=== PATIENT | male | born 1980 | race Caucasian/White ===

== ENCOUNTER 2018-02-06 21:33 | Emergency (ER) | payer BC, SELFPAY ==
[2018-02-06 22:41] LABS: #Basophils 0.1 thou/uL (0.0-0.2); #Eosinphils 0.2 thou/uL (0.0-0.7); #Lymphocytes 1.7 thou/uL (1.20-3.40); #Monocytes 0.5 thou/uL (0.11-0.59); #Neutrophils 5.8 thou/uL (1.40-6.50); %Eosinophils 2.4 % (0.0-10.0); %Lymphocytes 20.6 % (21.0-51.0); %Monocytes 6.2 % (0.0-10.0); %Neutrophils 69.8 % (42.0-75.0); Hemoglobin 14.2 g/dL (14.0-18.0); Mean Corpuscular Volume 97.1 fL (78.0-98.0); Mean Platelet Volume 6.4 fL (7.4-10.4); Platelet Count 413 thou/uL (130-400); RBC Distribution Width 11.5 % (11.5-14.5); White Blood Cell (WBC) Count 8.3 thou/uL (4.8-10.8)
[2018-02-06 23:00] LABS: Acetaminophen Less than 6.0 mcg/mL (10.0-30.0); Alcohol 353 mg/dL (Less than 10); CK (CPK) 173 U/L (30-200); Salicylate Less than 8.0 mg/dL (15.0-30.0)
[2018-02-06 23:13] LABS: ALT (SGPT) 51 U/L (8-55); AST (SGOT) 48 U/L (5-34); Albumin 4.3 g/dL (3.5-5.0); Alkaline Phosphatase 55 U/L (40-150); Anion Gap 13 mmol/L (10-20); BUN (Urea Nitrogen) 8 mg/dL (8.9-20.6); Bilirubin, Total 0.3 mg/dL (0.2-1.2); Calc. Creatinine Clearance 0 mL/min (70-130); Calcium 8.4 mg/dL (7.8-10.44); Carbon Dioxide 27 mmol/L (22-29); Chloride 108 mmol/L (98-107); Estimated GFR-MDRD Greater than 90; Globulin 3.2 g/dL (2.4-3.5); Glucose 95 mg/dL (70-105); Potassium 4.3 mmol/L (3.5-5.1); Protein, Total 7.5 g/dL (6.0-8.3); Sodium 144 mmol/L (136-145)
[2018-02-07 00:13] LABS: Bilirubin Negative (Negative); Blood, Urine Negative (Negative); Clarity CLEAR (Clear); Glucose, Urine (Dipstick) Negative (Negative); Leukocyte Negative (Negative); Nitrite Negative (Negative); Protein, Urine (Dipstick) Negative (Neg-Trace); Specific Gravity, Urine 1.005 (1.002-1.036); Urobilinogen 0.2 mg/dL (0.2-1.0)
[2018-02-07 00:20] LABS: Medtox Reader # READER 4
[2018-02-07 00:21] LABS: Amphetamine Not Detected (NotDetected); Barbiturates Screen Not Detected (NotDetected); Benzodiazepine Screen Not Detected (NotDetected); Cocaine Metabolite Screen Not Detected (NotDetected); Medtox Control Line Valid? VALID (VALID); Methadone Not Detected (NotDetected); Methamphetamine Not Detected (NotDetected); Opiate Screen Not Detected (NotDetected); Oxycodone Screen Not Detected (NotDetected); Phencyclidine (PCP) Not Detected (NotDetected); THC/Cannabinoid Screen Not Detected (NotDetected); Tricyclic Screen Not Detected (NotDetected)
== END 2018-02-07 22:32 | disposition home or self-care (01) ==
LOC: ERS 21:33
DX: F10.129 Alcohol abuse with intoxication, unspecified (principal); Y90.5 Blood alcohol level of 100-119 mg/100 ml; R45.1 Restlessness and agitation; F41.9 Anxiety disorder, unspecified; F32.9 Major depressive disorder, single episode, unspecified
CPT/HCPCS: 36415; 80053; 80306; 80307; 81003; 82550; 84443; 85025; 94760; 96360

== ENCOUNTER 2019-06-17 10:17 | Inpatient (IN) | payer SELFPAY ==
[2019-06-17 11:28] LABS: ALT (SGPT) 105 U/L (8-55); AST (SGOT) 289 U/L (5-34); Albumin 5.1 g/dL (3.5-5.0); Alkaline Phosphatase 59 U/L (40-110); Anion Gap 35 mmol/L (10-20); Bilirubin, Total 1.3 mg/dL (0.2-1.2); Calc. Creatinine Clearance 0 mL/min (70-130); Calcium 8.1 mg/dL (7.8-10.44); Carbon Dioxide 17 mmol/L (22-29); Chloride 114 mmol/L (98-107); Estimated GFR-MDRD 5; Glucose 148 mg/dL (70-105); Potassium 5.4 mmol/L (3.5-5.1); Protein, Total 9.1 g/dL (6.0-8.3)
[2019-06-17 11:29] LABS: Acetaminophen Less than 6.0 mcg/mL (10.0-30.0); Alcohol Less than 10 mg/dL (Less than 10); Salicylate Less than 8.0 mg/dL (15.0-30.0)
[2019-06-17 11:39] LABS: Hemoglobin 16.7 g/dL (14.0-18.0); Mean Corpuscular HGB CONC 31.7 g/dL (32.0-36.0); Mean Corpuscular Hemoglobin 31.3 pg (27.0-31.0); Mean Corpuscular Volume 98.6 fL (78.0-98.0); Mean Platelet Volume 9.1 fL (7.4-10.4); Platelet Count 279 thou/uL (130-400); RBC Distribution Width 12.2 % (11.5-14.5); Red Blood Cell (RBC) Count 5.33 mill/uL (4.70-6.10); White Blood Cell (WBC) Count 15.2 thou/uL (4.8-10.8)
[2019-06-17 11:41] LABS: #Lymphocytes 1.8 thou/uL (1.20-3.40); #Monocytes 1.6 thou/uL (0.11-0.59); #Neutrophils 11.8 thou/uL (1.40-6.50); %Basophils 0.1 % (0.0-1.0); %Eosinophils 0.1 % (0.0-10.0); %Lymphocytes 11.5 % (21.0-51.0); %Monocytes 10.3 % (0.0-10.0); Band 7 % (5-11); Lymphocytes 7 % (21-51); MDiff Complete? YES; Monocytes 11 % (0-10); Neutrophil 73 % (42-75); Platelet Morphology Comment Appears Adequate; RBC Morphology Normal; Reactive Lymphocytes 2 % (0-10)
[2019-06-17 11:42] LABS: BUN (Urea Nitrogen) 181 mg/dL (8.9-20.6)
[2019-06-17 11:55] LABS: CK (CPK) 17165 U/L (30-200)
[2019-06-17 12:11] LABS: Bilirubin 1+ (Negative); Blood, Urine 2+ (Negative); Clarity Turbid (Clear); Glucose, Urine (Dipstick) Normal (Negative); Leukocyte Negative Leu/uL (Negative); Nitrite Negative (Negative); Protein, Urine (Dipstick) 100 mg/dL (Neg-Trace); RBC/HPF 0-3 HPF (0-3); Squamous Epithelial 0-3 HPF (0-3)
[2019-06-17 12:12] LABS: Amphetamine Not Detected (NotDetected); Barbiturates Screen Not Detected (NotDetected); Benzodiazepine Screen Not Detected (NotDetected); Cocaine Metabolite Screen Not Detected (NotDetected); Medtox Control Line Valid? VALID (VALID); Medtox Reader # READER 1; Methadone Not Detected (NotDetected); Methamphetamine Not Detected (NotDetected); Opiate Screen Not Detected (NotDetected); Oxycodone Screen Not Detected (NotDetected); Phencyclidine (PCP) Not Detected (NotDetected); THC/Cannabinoid Screen Not Detected (NotDetected); Tricyclic Screen Not Detected (NotDetected)
[2019-06-17 12:15] LABS: Sodium 161 mmol/L (136-145)
[2019-06-17 12:24] LABS: Bacteria/HPF 3+ HPF (None Seen)
[2019-06-17 12:25] LABS: Triple Phosphate Crystal 2+ HPF (None Seen)
[2019-06-17] MEDS ORDERED: Multivitamins, Adult 10 ML, Thiamine HCl 100 MG, Folic Acid 1 MG in Dextrose 5 %-0.45 %... IV SCH (13:15)
[2019-06-17] MEDS ORDERED: Sodium Chloride 0.9% 2,000 ML IV SCH (13:15)
[2019-06-17] MEDS ORDERED: HYDROcodone/Acetaminophen 5/325 mg Tablet PO PRN ×3 (15:00→15:41)
[2019-06-17] MEDS ORDERED: Ondansetron PF 4 MG/2 ML Vial IVP PRN ×2 (15:00→15:41)
[2019-06-17] MEDS ORDERED: Ondansetron ODT 4 MG TAB SL PRN (15:00)
[2019-06-17] MEDS ORDERED: Acetaminophen 325 MG TAB PO PRN ×2 (15:00→15:41)
[2019-06-17] MEDS ORDERED: Dextrose 5 %-0.45 % NaCl 1,000 ML IV SCH (15:15)
[2019-06-17 15:22] VITALS: BMI 24.4
[2019-06-17] MEDS ORDERED: Multivit, Adult Inj 10 ML VIAL IV SCH (15:41)
[2019-06-17] MEDS ORDERED: Guaifenesin DM 100-10/5 ML UDCUP PO PRN (15:41)
[2019-06-17] MEDS ORDERED: Ondansetron ODT 4 MG TAB PO PRN (15:41)
[2019-06-17] MEDS ORDERED: Bisacodyl 10 MG SUPP PR PRN (15:41)
[2019-06-17] MEDS ORDERED: Lorazepam 2 MG/ML VIAL SLOW IVP PRN (15:41)
[2019-06-17] MEDS ORDERED: Sodium Chloride 0.65% Nasal 44 ML BOT EA NARE PRN (15:41)
[2019-06-17] MEDS ORDERED: Senokot S 8.6-50 MG TAB PO PRN (15:41)
[2019-06-17] MEDS ORDERED: Calcium Carbonate 500 MG ChewTAB PO PRN (15:41)
[2019-06-17] MEDS ORDERED: Zolpidem Tartrate 5 MG TAB PO PRN (15:41)
[2019-06-17] MEDS ORDERED: Artificial Tears 18 DROP/0.9 ML EA EYE PRN (15:41)
[2019-06-17] MEDS ORDERED: cloNIDine 0.1 MG TAB PO PRN (15:41)
[2019-06-17] MEDS ORDERED: Loratadine 10 MG TAB PO PRN (15:41)
[2019-06-17] MEDS ORDERED: Loperamide HCl 2 MG CAP PO PRN (15:41)
[2019-06-17] MEDS ORDERED: Cepastat Lozenges 1 LOZ PO PRN (15:41)
[2019-06-17] MEDS ORDERED: Labetalol HCl 100 MG/20 ML VIAL SLOW IVP PRN (15:41)
[2019-06-17] MEDS ORDERED: Multivitamins, Adult 10 ML in Dextrose 5 %-0.45 % NaCl 1,000 ML IV SCH (16:45)
[2019-06-17] MEDS ORDERED: MULTIVITAMINS IV SCH (17:00)
[2019-06-17] MEDS ORDERED: DEXTROSE IV SCH (17:00)
[2019-06-17] MEDS ORDERED: WATER IV SCH (17:00)
[2019-06-17 17:03] LABS: Lactic Acid 1.3 mmol/L (0.5-2.2)
[2019-06-17 17:07] LABS: Magnesium 3.4 mg/dL (1.6-2.6); Phosphorus 7.1 mg/dL (2.3-4.7)
[2019-06-17] MEDS: Sodium Chloride 0.9% 1,000 ML IV SCH ×3 (17:08→17:10)
[2019-06-17 17:28] LABS: HBCM Index 0.19 S/CO (0-0.79); HBSAg Index 0.16 S/CO (0-0.99); Hep A IgM AB Non-Reactive (NonReactive); Hep A IgM S/CO 0.22 S/CO (0-0.79); Hep B Surf Ag Non-Reactive S/CO (NonReactive); Hep C IgG Ab Non-Reactive (NonReactive); Hep C Index 0.12 S/CO (0-0.79); Hepatitis B Core IgM Abs Non-Reactive (NonReactive)
[2019-06-17 17:43] LABS: Creatinine, Urine 127.49 mg/dL (63-166)
[2019-06-17] MEDS ORDERED: Famotidine/PF 20 mg/2ml Vial SLOW IVP SCH (21:00)
[2019-06-17] MEDS ORDERED: Famotidine 20 MG TAB PO SCH (21:00)
[2019-06-17 21:13] LABS: Anion Gap 20 mmol/L (10-20); Calc. Creatinine Clearance 18 mL/min (70-130); Calcium 7.3 mg/dL (7.8-10.44); Carbon Dioxide 19 mmol/L (22-29); Chloride 120 mmol/L (98-107); Estimated GFR-MDRD 10; Glucose 143 mg/dL (70-105); Potassium 4.1 mmol/L (3.5-5.1); Sodium 155 mmol/L (136-145)
[2019-06-17 21:24] LABS: BUN (Urea Nitrogen) 141 mg/dL (8.9-20.6)
[2019-06-17] MEDS: Heparin 5,000 UNITS/ML VIAL SC SCH (22:50)
--- NOTE | 2019-06-18 00:46 | CON ---
DATE OF CONSULTATION: 06/17/2019 CONSULTING PHYSICIAN: Dr. Emerson. REASON FOR CONSULTATION: Acute kidney injury. REASON FOR ADMISSION: Lymphedema. HISTORY OF PRESENT ILLNESS: This is a 39-year-old male with some psychiatric issues, including anxiety and depression, who was taken to the hospital because of dehydration. The patient was wandering in the wilderness and did not eat anything or drink anything for 5 days and was found to be dehydrating. In the hospital, he was found to have elevated creatinine and CK level. Nephrology consulted. The patient is feeling slightly better after the hydration. His blood pressure was better. Blood pressure was in the 70s on arrival. No fever or chills. No nausea or vomiting. PAST MEDICAL HISTORY: Positive for anxiety and depression. PAST SURGICAL HISTORY: Tonsillectomy. HOME MEDICATIONS: None. ALLERGIES: NO KNOWN DRUG ALLERGIES. SOCIAL HISTORY: Former drug user. No alcohol use. No smoking. FAMILY HISTORY: No history of kidney disease. REVIEW OF SYSTEMS: The following complete review of systems was negative, unless otherwise mentioned in the HPI or below: Constitutional: Weight loss or gain, ability to conduct usual activities. Skin: Rash, itching. Eyes: Double vision, pain. ENT/Mouth: Nose bleeding, neck stiffness, pain, tenderness. Cardiovascular: Palpitations, dyspnea on exertion, orthopnea. Respiratory: Shortness of breath, wheezing, cough, hemoptysis, fever or night sweats. Gastrointestinal: Poor appetite, abdominal pain, heartburn, nausea, vomiting, constipation, or diarrhea. Genitourinary: Urgency, frequency, dysuria, nocturia. Musculoskeletal: Pain, swelling. Neurologic/Psychiatric: Anxiety, depression. Allergy/Immunologic: Skin rash, bleeding tendency. PHYSICAL EXAMINATION: GENERAL: This is a well-built male in no apparent distress. VITAL SIGNS: Temperature 97.8, pulse 108, respiratory rate 18, blood pressure 118/75. HEENT: Atraumatic, normocephalic. Oral mucosa is moist. NECK: Supple. CV: S1, S2. Rate and rhythm regular. RESPIRATORY: Clear. GI: Abdomen is soft. MUSCULOSKELETAL: 1+ edema. DERMATOLOGIC: No skin rash. NEUROLOGIC: Alert and awake. PSYCHIATRIC: Normal mood and affect LABORATORY DATA: Sodium 161, potassium is 5.4, chloride 114, bicarb is 17, BUN is 181, creatinine is 11.9. ASSESSMENT AND PLAN: 1. Acute kidney injury, most likely secondary to volume depletion. We will start on D5 and half NS given the hypernatremia. 2. Hypernatremia. Continue on D5 and half NS. Monitor labs. 3. Hyperkalemia. Monitor. 4. Hypochloremia. 5. Acidosis with high anion gap. 6. Elevated liver enzymes. 7. Elevated CK level. 8. Hypoalbuminemia. 9. Hemoconcentration. 10. Pyuria, rule out any infection. 11. History of substance abuse. None detected in the urine drug screen. 12. Continue close monitoring. Continue hydration. We will continue on D5 and half NS. Monitor labs. Avoid nephrotoxins. Continue supportive care. Thank you for the consult. We will follow. Job ID: [id number]
--- NOTE | 2019-06-18 05:57 | HP ---
PRIMARY CARE PHYSICIAN: [facility] Call admission. REASON FOR ADMISSION: Acute kidney failure, rhabdomyolysis, acute metabolic encephalopathy. HISTORY OF PRESENT ILLNESS: A 39-year-old male, who has underlying history of alcohol abuse as well as anxiety and depression, who is poor historian at this point does not provide any good history, so I spoke with the patient's mother at [phone]. They provided some history. The patient has underlying history of anxiety and depression as well as alcohol abuse and he required rehabilitation program last year. The patient also has episode of binge drinking and subsequently he stops drinking and at that point, the patient also stops drinking and eating everything. Parents reports that on last he left home without notifying them and he was not able to eat or drink anything for the next 5 days and today he was found walking on the street and lethargic about 8 miles away from his home. The patient was very dry when he was found and he was also having low blood pressure and he was tachycardic. When I asked the patient why he went outside, he was just saying he was exploring outside, but he does not have any suicidal ideation or homicidal ideation. He does not have any other chronic medical illness. Today in the emergency room, routine blood tests showed leukocytosis, left shift, severe hypernatremia, and acute kidney failure with metabolic acidosis and abnormal LFT, and rhabdomyolysis. His urine drug screen was negative. In the emergency room, he was hemodynamically stable, but he was tachycardic. The patient has received IV fluid to total 3 L. PAST MEDICAL HISTORY: The patient does not have any chronic medical illness. PAST PSYCHIATRIC HISTORY: Anxiety and depression. PAST SURGICAL HISTORY: Deviated nasal septum repair. SOCIAL HISTORY: The patient has history of previous drug abuse and he is also drinking a lot of alcohol about more than 5 beers every day in binge episode, no smoking, and he lives with his parents. FAMILY HISTORY: No strong family history of premature coronary artery disease, stroke, or cancer. ALLERGIES: NO KNOWN DRUG ALLERGY. CURRENT HOME MEDICATIONS: The patient is not taking any prescribed or non-prescribed medication at this point. REVIEW OF SYSTEMS: CONSTITUTIONAL: Negative for weight loss or gain, ability to conduct usual activities. SKIN: Negative for rash, itching. EYES: Negative for double vision, pain. ENT/MOUTH: Negative for nose bleeding, neck stiffness, pain, tenderness. CARDIOVASCULAR: Negative for palpitations, dyspnea on exertion, orthopnea. RESPIRATORY: Negative for shortness of breath, wheezing, cough, hemoptysis, fever or night sweats. GASTROINTESTINAL: Negative for poor appetite, abdominal pain, heartburn, nausea, vomiting, constipation, or diarrhea. GENITOURINARY: Negative for urgency, frequency, dysuria, nocturia. MUSCULOSKELETAL: Negative for pain, swelling. NEUROLOGIC/PSYCHIATRIC: Negative for anxiety, depression. ALLERGY/IMMUNOLOGIC: Negative for skin rash, bleeding tendency. All review of systems tried to review with the patient, but not reliable due to his cognitive status. EMERGENCY ROOM COURSE: The patient has received 3 L of IV fluid. PHYSICAL EXAMINATION: VITAL SIGNS: Currently, blood pressure 130/80, pulse 98, respiratory rate 16, temperature 97.8, saturation 97% on room air. Weight 83.9 kg. GENERAL: The patient is currently awake, follows simple commands. HEENT: Head; normocephalic, atraumatic. Dry mucous membrane. No pharyngeal erythema. No exudate. NECK: Supple. No JVD. No meningeal signs of irritation. LUNGS: Clear to auscultation without any rhonchi or rales. CARDIAC: S1 and S2. Regular. Tachycardia. No murmur. No gallop. No rub. ABDOMEN: Soft, bowel sounds present, nontender, nondistended. No organomegaly. No masses. EXTREMITIES: No edema. NEUROLOGIC: Nonfocal examination. No tremors. SIGNIFICANT LABS: CBC; WBC 15.2, hemoglobin 16.7, MCV 98.6, platelet 279 with left shift. BMP; sodium 161, potassium 5.4, chloride 114, carbon dioxide 17, anion gap 35, BUN 181, creatinine 11.9, glucose 148, calcium 8.1. LFT; AST 289, ALT 105, alkaline phosphatase 59, albumin 5.1, CK 17,165. TSH 1.20. Urinalysis; ketone +, turbid urinalysis, wbc 11 to 20, leukocyte esterase negative, nitrite negative. Urine drug screen negative. Serum drug screen negative. We are going to order chest x-ray and renal ultrasound. ASSESSMENT AND PLAN: 1. Acute kidney failure, prerenal etiology due to volume depletion and free water deficit. The patient also has associated hyaline cast and granular cast, rule out acute tubular necrosis. 2. Anion gap metabolic acidosis. We will check serum ketones and lactic acid suspecting from starvation ketoacidosis along with renal failure. 3. Abnormal electrolytes with hypernatremia due to free water deficit, normal volume depletion. 4. Hyperkalemia, likely related with metabolic acidosis. 5. Abnormal LFTs, likely due to alcohol abuse. We will obtain right upper quadrant ultrasound. We will also check hepatitis profile. 6. Rhabdomyolysis, likely related with his volume depletion after 5 days. We will repeat total CK tomorrow. TSH is normal. The patient will continue with IV fluid. 7. Leukocytosis, likely due to stress response. We will repeat CBC tomorrow. 8. Alcohol abuse. The patient will get multivitamin with IV fluid. 9. Deep venous thrombosis prophylaxis, heparin 5000 units subcu twice daily. 10. Gastrointestinal prophylaxis, Pepcid 20 mg IV daily. CODE STATUS: The patient is full code. DISPOSITION PLAN: Based on clinical course, we are expecting the patient to stay in hospital more than 2 midnights. Plan of care discussed with the patient and family member on phone. Job ID: [id number]
[2019-06-18 06:48] LABS: Prothrombin Time 13.4 sec (12.0-14.7)
[2019-06-18 06:59] LABS: #Lymphocytes 0.6 thou/uL (1.20-3.40); #Monocytes 1.1 thou/uL (0.11-0.59); #Neutrophils 7.2 thou/uL (1.40-6.50); %Eosinophils 0.2 % (0.0-10.0); %Lymphocytes 6.6 % (21.0-51.0); %Monocytes 12.8 % (0.0-10.0); %Neutrophils 80.3 % (42.0-75.0); Hemoglobin 13.4 g/dL (14.0-18.0); Mean Corpuscular HGB CONC 32.4 g/dL (32.0-36.0); Mean Corpuscular Hemoglobin 32.1 pg (27.0-31.0); Mean Corpuscular Volume 99.1 fL (78.0-98.0); Mean Platelet Volume 9.2 fL (7.4-10.4); Platelet Count 211 thou/uL (130-400); RBC Distribution Width 12.1 % (11.5-14.5); Red Blood Cell (RBC) Count 4.18 mill/uL (4.70-6.10); White Blood Cell (WBC) Count 8.9 thou/uL (4.8-10.8)
[2019-06-18 07:12] LABS: CK (CPK) 13384 U/L (30-200)
[2019-06-18 07:16] LABS: ALT (SGPT) 89 U/L (8-55); AST (SGOT) 268 U/L (5-34); Albumin 3.9 g/dL (3.5-5.0); Alkaline Phosphatase 47 U/L (40-110); Anion Gap 14 mmol/L (10-20); BUN (Urea Nitrogen) 109 mg/dL (8.9-20.6); Bilirubin, Total 1.9 mg/dL (0.2-1.2); Calc. Creatinine Clearance 31 mL/min (70-130); Calcium 7.7 mg/dL (7.8-10.44); Carbon Dioxide 29 mmol/L (22-29); Chloride 121 mmol/L (98-107); Estimated GFR-MDRD 18; Globulin 2.9 g/dL (2.4-3.5); Glucose 130 mg/dL (70-105); Potassium 4.3 mmol/L (3.5-5.1); Protein, Total 6.8 g/dL (6.0-8.3); Sodium 160 mmol/L (136-145)
[2019-06-18] MEDS: Famotidine 20 MG TAB PO SCH (08:35)
[2019-06-18] MEDS: Thiamine 100 MG TAB PO SCH (08:36)
[2019-06-18] MEDS: Dextrose 5 %-0.45 % NaCl 1,000 ML IV SCH ×2 (08:36→08:37)
[2019-06-18] MEDS: Multivitamin W/ Minerals 1 TAB PO SCH (08:36)
[2019-06-18] MEDS: Folic Acid 1 MG TAB PO SCH (08:36)
[2019-06-18] MEDS: Cyanocobalamin (Vitamin B-12) 1,000 MCG TAB PO SCH (08:36)
[2019-06-18] MEDS: Heparin 5,000 UNITS/ML VIAL SC SCH ×2 (09:19→20:16)
--- NOTE | 2019-06-18 10:07 | PDOC.HOSPP ---
- Subjective Encounter Date: 06/18/19 Encounter Time: 09:30 Subjective: Patient seen and examined. No new complaints. No overnight events - Objective Vital Signs & Weight: Vital Signs (12 hours) Temp Pulse Resp BP Pulse Ox 06/18/19 08:00 97 06/18/19 07:34 97.6 F 98 20 110/73 97 06/18/19 04:00 98.3 F 71 17 138/81 98 06/18/19 00:00 97.9 F 85 18 130/90 98 Weight Weight 185 lb I&O: 06/17/19 06/18/19 06/19/19 06:59 06:59 06:59 Intake Total 1500 Output Total 1825 Balance -325 Result Diagrams: 06/18/19 06:05 06/18/19 06:05 Radiology Reviewed by me: Yes Hospitalist ROS - Review of Systems Eyes: denies: pain, vision change, conjunctivae inflammation, eyelid inflammation, redness, other ENT: denies: ear pain, ear discharge, nose pain, nose discharge, nose congestion , mouth pain, mouth swelling, throat pain, throat swelling, other Respiratory: denies: cough, dry, shortness of breath, hemoptysis, SOB with excertion, pleuritic pain, sputum, wheezing, other Cardiovascular: denies: chest pain, palpitations, orthopnea, paroxysmal noc. dyspnea, edema, light headedness, other Gastrointestinal: denies: nausea, vomiting, abdominal pain, diarrhea, constipation, melena, hematochezia, other Genitourinary: denies: dysuria, frequency, incontinence, hematuria, retention, other Musculoskeletal: denies: neck pain, shoulder pain, arm pain, back pain, hand pain, leg pain, foot pain, other Skin: denies: rash, lesions, mariza, bruising, other - Medication Medications: Active Medications Generic Name Dose Route Start Last Admin Trade Name Freq PRN Reason Stop Dose Admin Cyanocobalamin 1,000 mcg 06/18/19 09:00 06/18/19 08:36 Vitamin B-12 PO 1,000 mcg DAILY GENARO Administration Famotidine 20 mg 06/18/19 09:00 06/18/19 08:35 Pepcid PO 20 mg DAILY GENARO Administration Folic Acid 1 mg 06/18/19 09:00 06/18/19 08:36 Folvite PO 1 mg DAILY GENARO Administration Heparin Sodium (Porcine) 5,000 units 06/17/19 21:00 06/18/19 09:19 Heparin SC Not Given BID GENARO Dextrose/Sodium Chloride 1,000 mls @ 125 mls/hr 06/17/19 20:45 06/18/19 08:37 D5 1/2 Ns IV Not Given .Q8H GENARO Iron/Minerals/Multivitamins 1 tab 06/18/19 09:00 06/18/19 08:36 Theragran M PO 1 tab DAILY GENARO Administration Sodium Chloride 10 ml 06/18/19 09:00 06/18/19 09:19 Flush - Normal Saline IVF 10 ml Q12HR GENARO Administration Thiamine HCl 100 mg 06/18/19 09:00 06/18/19 08:36 Thiamine PO 100 mg DAILY GENARO Administration - Exam General Appearance: NAD, awake alert Eye: PERRL, anicteric sclera ENT: normocephalic atraumatic, no oropharyngeal lesions Neck: supple, symmetric, no JVD, no thyromegaly Heart: RRR, no murmur, no gallops, no rubs Respiratory: CTAB, no wheezes, no rales, no ronchi Gastrointestinal: soft, non-tender, non-distended, normal bowel sounds Extremities: no cyanosis, no clubbing, no edema Skin: normal turgor, no lesions Neurological: cranial nerve grossly intact, no focal deficits Musculoskeletal: normal tone, normal strength Psychiatric: normal affect, normal behavior Hosp A/P (1) Acute kidney failure Status: Acute (2) Rhabdomyolysis Code(s): M62.82 - RHABDOMYOLYSIS Status: Acute Qualifiers: Rhabdomyolysis type: non-traumatic Qualified Code(s): M62.82 - Rhabdomyolysis (3) High anion gap metabolic acidosis Code(s): E87.2 - ACIDOSIS Status: Acute (4) Hypernatremia Code(s): E87.0 - HYPEROSMOLALITY AND HYPERNATREMIA Status: Acute (5) Abnormal LFTs Code(s): R94.5 - ABNORMAL RESULTS OF LIVER FUNCTION STUDIES Status: Acute (6) Alcohol abuse Code(s): F10.10 - ALCOHOL ABUSE, UNCOMPLICATED Status: Chronic - Plan old records reviewed/req continue current IVF renal function improving will need repeat labs tomorrow i have suggested him to drink free water today medication reviewed and symptomatic treatment
[2019-06-18] MEDS: Dextrose 5% in Water 1,000 ML IV SCH ×2 (10:49→18:19)
--- NOTE | 2019-06-18 12:42 | ULT ---
ULTRASOUND ABDOMEN: HISTORY: Abnormal LFTs. FINDINGS: The liver demonstrates increased echogenicity concerning for fatty infiltration. No focal mass or in trahepatic ductal dilatation is seen. The gallbladder, spleen, kidneys, and visualized portions of the pancreas, aorta, and IVC are unremar kable. The common duct measures 3 mm in diameter. No free fluid is seen. IMPRESSION: 1. Fatty liver. 2. No evidence of cholelithiasis. POS: MZA
--- NOTE | 2019-06-18 12:43 | ULT ---
ULTRASOUND OF THE URINARY BLADDER: HISTORY: Acute renal insufficiency. FINDINGS: The urinary bladder is well distended with a volume of 373 cc and has a normal appearance. Bilateral ureteral jets are present. IMPRESSION: Unremarkable exam. POS: MILAA
--- NOTE | 2019-06-18 13:53 | PRG ---
DATE OF SERVICE: 06/18/2019 SUBJECTIVE: Patient was seen and examined at bedside and overnight events noted. Patient denies any shortness of breath or chest pain or palpitation. No history of nausea or vomiting or diarrhea or fever or chills or cramps. OBJECTIVE: GENERAL: This is a well-built male, in no apparent distress. VITAL SIGNS: Temperature 97.4. Heart Rate 60. Respiratory rate 14. Blood pressure 123/82. HEENT: Atraumatic, normocephalic. Oral mucosa is moist. NECK: Supple. CARDIOVASCULAR: S1, S2 heard. Rate and rhythm regular. RESPIRATORY: Clear to auscultation. GASTROINTESTINAL: Abdomen is soft. MUSCULOSKELETAL: No tenderness. No edema. DERMATOLOGIC: No skin rash. NEUROLOGIC: Alert and awake and oriented x3. No focal neurologic deficits. Moving all the extremities. PSYCHIATRIC: Mood and affect normal. LABORATORY DATA: Potassium 4.3, BUN is 109, creatinine is 3.8. ASSESSMENT AND PLAN: 1. Acute kidney injury, much better. Continue hydration. 2. Hyponatremia with hyperchloremia. Plan is to start on D5W. 3. Acidosis, better. 4. Elevated liver enzymes. 5. Elevated CK level with rhabdomyolysis. 6. Hemoconcentration. Continue hydration, encourage oral intake, and avoid nephrotoxins. We will follow. Job ID: [id number]
[2019-06-19] MEDS: Dextrose 5% in Water 1,000 ML IV SCH ×3 (03:02→18:12)
[2019-06-19 06:13] LABS: Hemoglobin 12.6 g/dL (14.0-18.0); Mean Corpuscular HGB CONC 32.3 g/dL (32.0-36.0); Mean Corpuscular Hemoglobin 32.5 pg (27.0-31.0); Mean Platelet Volume 8.7 fL (7.4-10.4); Platelet Count 183 thou/uL (130-400); RBC Distribution Width 11.8 % (11.5-14.5); Red Blood Cell (RBC) Count 3.89 mill/uL (4.70-6.10); White Blood Cell (WBC) Count 10.1 thou/uL (4.8-10.8)
[2019-06-19 06:43] LABS: ALT (SGPT) 100 U/L (8-55); AST (SGOT) 285 U/L (5-34); Albumin 3.7 g/dL (3.5-5.0); Alkaline Phosphatase 47 U/L (40-110); Anion Gap 11 mmol/L (10-20); BUN (Urea Nitrogen) 38 mg/dL (8.9-20.6); Calc. Creatinine Clearance 76 mL/min (70-130); Calcium 8.4 mg/dL (7.8-10.44); Carbon Dioxide 29 mmol/L (22-29); Chloride 115 mmol/L (98-107); Estimated GFR-MDRD 51; Globulin 2.8 g/dL (2.4-3.5); Glucose 98 mg/dL (70-105); Potassium 3.4 mmol/L (3.5-5.1); Protein, Total 6.5 g/dL (6.0-8.3); Sodium 152 mmol/L (136-145)
[2019-06-19 06:43] LABS: Band 3 % (5-11); Eosinophils 1 % (0-10); Lymphocytes 11 % (21-51); MDiff Complete? YES; Monocytes 14 % (0-10); Neutrophil 71 % (42-75)
[2019-06-19] MEDS: Multivitamin W/ Minerals 1 TAB PO SCH (08:15)
[2019-06-19] MEDS: Cyanocobalamin (Vitamin B-12) 1,000 MCG TAB PO SCH (08:15)
[2019-06-19] MEDS: Folic Acid 1 MG TAB PO SCH (08:15)
[2019-06-19] MEDS: Famotidine 20 MG TAB PO SCH (08:15)
[2019-06-19] MEDS: Thiamine 100 MG TAB PO SCH (08:15)
[2019-06-19] MEDS: Heparin 5,000 UNITS/ML VIAL SC SCH ×2 (08:16→20:17)
[2019-06-19] MEDS ORDERED: Potassium Chloride 20 MEQ TAB PO SCH (09:15)
--- NOTE | 2019-06-19 10:39 | PRG ---
DATE OF SERVICE: 06/19/2019 SUBJECTIVE: Patient was seen and examined at bedside and overnight events noted. Patient denies any shortness of breath or chest pain or palpitation. No history of nausea or vomiting or diarrhea or fever or chills or cramps. OBJECTIVE: General: This is a well-built male, in no apparent distress. Vital Signs: Temperature 98.2. Heart Rate 88. Respiratory rate 16. Blood pressure 110/70. HEENT: Atraumatic, normocephalic. Oral mucosa is moist. Neck: Supple. Cardiovascular: S1, S2 heard. Rate and rhythm regular. Respiratory: Clear to auscultation. Gastrointestinal: Abdomen is soft. Musculoskeletal: No tenderness. No edema. Dermatologic: No skin rash. Neurologic: Alert and awake and oriented x3. No focal neurologic deficits. Moving all the extremities. Psychiatric: Mood and affect normal. LABORATORY DATA: Potassium 3.2, sodium 152, BUN is 38, and creatinine is 1.5. ASSESSMENT AND PLAN: 1. Acute kidney injury, much better. 2. Hypernatremia. Continue D5W. 3. Acidosis, better. 4. Elevated CK level, better. 5. Continue hydration as tolerated. Renal function is better. Making urine. Continue free water. Job ID: [id number]
--- NOTE | 2019-06-19 15:32 | PDOC.HOSPP ---
- Subjective Subjective: Seen and examined. Patient is calm and respectful. Alert and oriented. No harm to self or others at this time. Flat affect. Denies pain. Lower extremity abrasions on bare feet from walking in the [place] did not seem infected, dry scabs. I discussed the case with his mother over the phone at [phone], time was given for questions, all answered it in detail (Greater than 20 minutes spent on the phone with her). Hx of bipolar depression on Seroquel in the past, has fallen out of care and no longer takes medications or follows up with PCP or psychiatry. - Objective Vital Signs & Weight: Vital Signs (12 hours) Temp Pulse Resp BP Pulse Ox 06/19/19 08:00 96 06/19/19 07:50 98.2 F 88 16 110/70 96 06/19/19 03:38 98.6 F 73 18 118/75 96 Weight Weight 185 lb I&O: 06/18/19 06/19/19 06/20/19 06:59 06:59 06:59 Intake Total 1500 1550 Output Total 1825 1600 Balance -325 -50 Result Diagrams: 06/19/19 05:53 06/19/19 05:52 Radiology Reviewed by me: Yes Hospitalist ROS - Review of Systems All other systems reviewed; all pertinent +/- noted in HPI/Subj - Medication Medications: Active Medications Generic Name Dose Route Start Last Admin Trade Name Freq PRN Reason Stop Dose Admin Cyanocobalamin 1,000 mcg 06/18/19 09:00 06/19/19 08:15 Vitamin B-12 PO 1,000 mcg DAILY GENARO Administration Famotidine 20 mg 06/18/19 09:00 06/19/19 08:15 Pepcid PO 20 mg DAILY GENARO Administration Folic Acid 1 mg 06/18/19 09:00 06/19/19 08:15 Folvite PO 1 mg DAILY GENARO Administration Heparin Sodium (Porcine) 5,000 units 06/17/19 21:00 06/19/19 08:16 Heparin SC Not Given BID GENARO Dextrose/Water 1,000 mls @ 125 mls/hr 06/18/19 10:45 06/19/19 11:21 D5w IV 1,000 mls .Q8H GENARO Administration Iron/Minerals/Multivitamins 1 tab 06/18/19 09:00 06/19/19 08:15 Theragran M PO 1 tab DAILY GENARO Administration Sodium Chloride 10 ml 06/18/19 09:00 06/19/19 08:17 Flush - Normal Saline IVF 10 ml Q12HR GENARO Administration Thiamine HCl 100 mg 06/18/19 09:00 06/19/19 08:15 Thiamine PO 100 mg DAILY GENARO Administration - Exam General Appearance: NAD, awake alert Eye: PERRL ENT: normocephalic atraumatic, moist mucosa Neck: supple, symmetric, no lymphadenopathy Heart: RRR, no murmur, no gallops, no rubs Respiratory: CTAB, no wheezes, no rales, no ronchi, normal chest expansion Gastrointestinal: soft, non-tender, non-distended, no guarding, no rigidity Extremities: no edema Skin - other findings: Bilateral leg scratches dry scabs, without infection or inflammation Neurological: cranial nerve grossly intact, no weakness, no focal deficits Musculoskeletal: no muscle wasting Psychiatric: A&O x 3, flat affect Hosp A/P (1) Bipolar depression Code(s): F31.9 - BIPOLAR DISORDER, UNSPECIFIED Status: Acute (2) Abnormal LFTs Code(s): R94.5 - ABNORMAL RESULTS OF LIVER FUNCTION STUDIES Status: Acute (3) Acute kidney failure Status: Acute (4) High anion gap metabolic acidosis Code(s): E87.2 - ACIDOSIS Status: Acute (5) Hypernatremia Code(s): E87.0 - HYPEROSMOLALITY AND HYPERNATREMIA Status: Acute (6) Rhabdomyolysis Code(s): M62.82 - RHABDOMYOLYSIS Status: Acute Qualifiers: Rhabdomyolysis type: non-traumatic Qualified Code(s): M62.82 - Rhabdomyolysis (7) Alcohol abuse Code(s): F10.10 - ALCOHOL ABUSE, UNCOMPLICATED Status: Chronic - Plan Plan: Medical unit Nephrology consultation, recommendations appreciated continue IV fluids continue to trend renal function, Cr much improved with help from Nephrology hypernatremia improving after a long discussion with the patient's mother I believe it is best to re start him on Seroquel for mood stabilization Uptitrate Seroquel in the upcoming weeks patient will need outpatient follow-up with psychiatry and PCP to avoid future complications patient has been off alcohol for greater than one week at this whole process, does not need further alcohol withdrawal prophylaxis blood pressure control blood sugar control G.I. prophylaxis DVT prophylaxis
[2019-06-19] MEDS: Potassium Chloride 20 MEQ TAB PO SCH (16:58)
[2019-06-20] MEDS: Dextrose 5% in Water 1,000 ML IV SCH ×3 (02:14→18:00)
[2019-06-20] MEDS: Heparin 5,000 UNITS/ML VIAL SC SCH ×2 (07:57→21:52)
[2019-06-20] MEDS: Famotidine 20 MG TAB PO SCH (07:57)
[2019-06-20] MEDS: Folic Acid 1 MG TAB PO SCH (07:58)
[2019-06-20] MEDS: Thiamine 100 MG TAB PO SCH (07:58)
[2019-06-20] MEDS: Cyanocobalamin (Vitamin B-12) 1,000 MCG TAB PO SCH (07:58)
[2019-06-20] MEDS: Multivitamin W/ Minerals 1 TAB PO SCH (07:58)
[2019-06-20] MEDS: Potassium Chloride 20 MEQ TAB PO SCH (07:58)
--- NOTE | 2019-06-20 10:19 | PRG ---
DATE OF SERVICE: 06/20/2019 SUBJECTIVE: Patient was seen and examined at bedside and overnight events noted. Patient denies any shortness of breath or chest pain or palpitation. No history of nausea or vomiting or diarrhea or fever or chills or cramps. OBJECTIVE: GENERAL: This is a well-built male, in no apparent distress. VITAL SIGNS: Temperature 98.3. Heart Rate 82. Respiratory rate 18. Blood pressure 108/67. HEENT: Atraumatic, normocephalic. Oral mucosa is moist. NECK: Supple. CARDIOVASCULAR: S1, S2 heard. Rate and rhythm regular. RESPIRATORY: Clear to auscultation. GASTROINTESTINAL: Abdomen is soft. MUSCULOSKELETAL: No tenderness. No edema. DERMATOLOGIC: No skin rash. NEUROLOGIC: Alert and awake and oriented x3. No focal neurologic deficits. Moving all the extremities. PSYCHIATRIC: Mood and affect normal. LABORATORY DATA: No labs done today. ASSESSMENT AND PLAN: 1. Acute kidney injury. We will recheck labs. 2. Hypernatremia. 3. Hyperchloremia. 4. Acidosis. 5. Elevated CK level. Monitor labs. Continue hydration. Job ID: [id number]
[2019-06-20 12:32] LABS: Anion Gap 11 mmol/L (10-20); BUN (Urea Nitrogen) 16 mg/dL (8.9-20.6); Calc. Creatinine Clearance 101 mL/min (70-130); Calcium 9.5 mg/dL (7.8-10.44); Carbon Dioxide 26 mmol/L (22-29); Chloride 109 mmol/L (98-107); Estimated GFR-MDRD 70; Glucose 101 mg/dL (70-105); Potassium 4.1 mmol/L (3.5-5.1); Sodium 142 mmol/L (136-145)
[2019-06-21 05:32] LABS: #Eosinphils 0.4 thou/uL (0.0-0.7); #Lymphocytes 1.1 thou/uL (1.20-3.40); #Monocytes 1.6 thou/uL (0.11-0.59); #Neutrophils 8.1 thou/uL (1.40-6.50); %Basophils 0.4 % (0.0-1.0); %Eosinophils 3.3 % (0.0-10.0); %Monocytes 14.3 % (0.0-10.0); Hemoglobin 13.4 g/dL (14.0-18.0); Mean Corpuscular HGB CONC 32.3 g/dL (32.0-36.0); Mean Corpuscular Hemoglobin 32.4 pg (27.0-31.0); Mean Platelet Volume 8.6 fL (7.4-10.4); Platelet Count 205 thou/uL (130-400); RBC Distribution Width 11.7 % (11.5-14.5); Red Blood Cell (RBC) Count 4.14 mill/uL (4.70-6.10); White Blood Cell (WBC) Count 11.2 thou/uL (4.8-10.8)
[2019-06-21 05:54] LABS: ALT (SGPT) 84 U/L (8-55); AST (SGOT) 120 U/L (5-34); Albumin 3.7 g/dL (3.5-5.0); Alkaline Phosphatase 50 U/L (40-110); Anion Gap 13 mmol/L (10-20); BUN (Urea Nitrogen) 16 mg/dL (8.9-20.6); Bilirubin, Total 0.7 mg/dL (0.2-1.2); CK (CPK) 897 U/L (30-200); Calc. Creatinine Clearance 101 mL/min (70-130); Calcium 9.8 mg/dL (7.8-10.44); Carbon Dioxide 25 mmol/L (22-29); Chloride 108 mmol/L (98-107); Estimated GFR-MDRD 70; Globulin 3.3 g/dL (2.4-3.5); Glucose 92 mg/dL (70-105); Potassium 3.9 mmol/L (3.5-5.1); Sodium 142 mmol/L (136-145)
[2019-06-21] MEDS: Cyanocobalamin (Vitamin B-12) 1,000 MCG TAB PO SCH (07:59)
[2019-06-21] MEDS: Famotidine 20 MG TAB PO SCH (07:59)
[2019-06-21] MEDS: Heparin 5,000 UNITS/ML VIAL SC SCH (07:59)
[2019-06-21] MEDS: Thiamine 100 MG TAB PO SCH (07:59)
[2019-06-21] MEDS: Folic Acid 1 MG TAB PO SCH (07:59)
[2019-06-21] MEDS: Multivitamin W/ Minerals 1 TAB PO SCH (07:59)
[2019-06-21 08:24] VITALS: BP 110/66; TEMP 98.4
--- NOTE | 2019-06-21 10:46 | PRG ---
DATE OF SERVICE: 06/21/2019 SUBJECTIVE: Patient was seen and examined at bedside and overnight events noted. Patient denies any shortness of breath or chest pain or palpitation. No history of nausea or vomiting or diarrhea or fever or chills or cramps. OBJECTIVE: GENERAL: This is a thin-built male, in no acute distress. VITAL SIGNS: Temperature 98.4. Heart rate 100. Respiratory rate 18. Blood pressure 110/66. HEENT: Atraumatic, normocephalic. Oral mucosa is moist. NECK: Supple. CARDIOVASCULAR: S1, S2 heard. Rate and rhythm regular. RESPIRATORY: Clear to auscultation. GASTROINTESTINAL: Abdomen is soft. MUSCULOSKELETAL: No tenderness. No edema. DERMATOLOGIC: No skin rash. NEUROLOGIC: Alert and awake and oriented x3. No focal neurologic deficits. Moving all the extremities. PSYCHIATRIC: Mood and affect normal. LABORATORY DATA: Potassium 3.9, BUN is 16, and creatinine is 1.6. CK level is 897. ASSESSMENT AND PLAN: 1. Acute kidney injury, much better and stable. 2. Hypernatremia, stable. 3. Hyperchloremia. 4. Elevated CK level, better. 5. Acidosis, better. Labs are stable. I will sign off. Please call back with any questions if needed. Job ID: [id number]
--- NOTE | 2019-06-24 02:51 | DIS ---
DATE OF ADMISSION: 06/17/2019 DATE OF DISCHARGE: 06/21/2019 CHIEF COMPLAINT ON ADMISSION: Acute kidney failure, rhabdomyolysis, and acute metabolic encephalopathy. History and physical have been dictated. I will resume from there with hospital course. HOSPITAL COURSE: The patient was placed in an intensive care environment where IV fluids and resuscitation were maintained with IV fluid. DVT prevention with heparin. Protonix IV. Alcohol withdrawal. Hyperkalemia was treated as well as the metabolic acidosis. Over the next 24 hours, the patient made progress. Dr. Coyle was asked to see the patient in renal consultation. This occurred also on . On 06/17, there had been no overnight events. No new complaints. He was encouraged to drink water and help rehydrate himself. An abdominal ultrasound was obtained which showed a fatty liver but no gallstones. A bladder ultrasound also was obtained which showed no lesions. By 06/18, he continued slow improvement. He was alert and oriented, had no desire to harm himself or anyone else. His demeanor was flat. He was able to be transferred to a medical bed at this point. His CK levels were steadily declining. By 06/19, he was alert, in no acute distress, cooperative, and doing significantly better. His potassium levels have normalized. His CK levels were coming down. His acidosis corrected. His acute kidney injury was resolving with hydration. It was noted that he had bipolar disorder and was in depression. The patient did well overnight and by 06/21/2019, was able to be discharged home. Vital signs were stable. Hemoglobin 13.4, hematocrit 41.5. His potassium was 3.9. TSH returned at 1.2. The CK level had dropped from 13,000 to 897 and he was stable to be discharged home with the caveat that he continued being abstinent from alcohol and seek a program for alcoholism as well as counseling for his major depression. This, the patient agreed to do at the time of discharge. Medications at discharge will be Naltrexone 50 mg once a day to help prevent going back to drinking. He is to stay well hydrated, and nutritionally, he will be supervised by his parents and he is instructed to follow up with [facility], which [facility], to address both the depression and his alcoholism. DIAGNOSES AT THE TIME OF DISCHARGE: 1) Acute renal failure corrected, 2) dehydration corrected, 3) alcoholism, 40 rhabdomyolysis, 5)hyperkalemia corrected, 6) bipolar depression. He will follow up with Dr. Rodriguez in 3-[address] Rodriguez assumed care of this patient in the last 24 hours of care once he was aware of his presence in the hospital being his usual PCP. Job ID: [id number] MTDD
== END 2019-06-21 16:26 | disposition home or self-care (01) | DRG 682 ==
LOC: ERS 10:17 → T4-B 15:14 → OBSVTOIN 15:14
PROVIDERS: ADMIT Internal Medicine; ATTEND Internal Medicine
DX: N17.9 Acute kidney failure, unspecified (principal); G93.41 Metabolic encephalopathy; M62.82 Rhabdomyolysis; F10.239 Alcohol dependence with withdrawal, unspecified; E87.2 Acidosis; E87.0 Hyperosmolality and hypernatremia; E87.5 Hyperkalemia; F31.9 Bipolar disorder, unspecified; E86.0 Dehydration; F41.9 Anxiety disorder, unspecified; E86.9 Volume depletion, unspecified; D72.828 Other elevated white blood cell count; E87.8 Other disorders of electrolyte and fluid balance, not elsewhere classified; R00.0 Tachycardia, unspecified; E88.09 Other disorders of plasma-protein metabolism, not elsewhere classified; F19.10 Other psychoactive substance abuse, uncomplicated; K76.0 Fatty (change of) liver, not elsewhere classified
CPT/HCPCS: 36415; 76856; 80048; 80053; 80074; 80306; 80307; 81003; 81015; 82010; 82140; 82550; 82570; 83605; 83735; 84100; 84300; 84443; 85025; 85610; 93005; 93975; 96361; 96365; J1644; J3411; J7042; J7070; S0028

== ENCOUNTER 2019-11-20 11:26 | Emergency (ER) | payer SELFPAY ==
[2019-11-20 12:30] LABS: #Lymphocytes 0.9 thou/uL (1.20-3.40); #Monocytes 0.8 thou/uL (0.11-0.59); #Neutrophils 7.1 thou/uL (1.40-6.50); %Basophils 0.5 % (0.0-1.0); %Eosinophils 0.4 % (0.0-10.0); %Monocytes 8.7 % (0.0-10.0); %Neutrophils 80.3 % (42.0-75.0); Hemoglobin 14.8 g/dL (14.0-18.0); Mean Corpuscular HGB CONC 34.3 g/dL (32.0-36.0); Mean Corpuscular Hemoglobin 32.4 pg (27.0-31.0); Mean Corpuscular Volume 94.4 fL (78.0-98.0); Mean Platelet Volume 7.2 fL (7.4-10.4); Platelet Count 195 thou/uL (130-400); RBC Distribution Width 11.9 % (11.5-14.5); Red Blood Cell (RBC) Count 4.58 mill/uL (4.70-6.10); White Blood Cell (WBC) Count 8.9 thou/uL (4.8-10.8)
[2019-11-20 12:53] LABS: ALT (SGPT) 80 U/L (8-55); AST (SGOT) 111 U/L (5-34); Albumin 4.9 g/dL (3.5-5.0); Alkaline Phosphatase 78 U/L (40-110); Anion Gap 19 mmol/L (10-20); BUN (Urea Nitrogen) 16 mg/dL (8.9-20.6); Bilirubin, Total 1.5 mg/dL (0.2-1.2); CK (CPK) 197 U/L (30-200); Calc. Creatinine Clearance 0 mL/min (70-130); Carbon Dioxide 24 mmol/L (22-29); Chloride 101 mmol/L (98-107); Estimated GFR-MDRD 69; Globulin 3.7 g/dL (2.4-3.5); Glucose 103 mg/dL (70-105); Protein, Total 8.6 g/dL (6.0-8.3); Sodium 140 mmol/L (136-145)
[2019-11-20 13:32] LABS: Bacteria/HPF None Seen HPF (None Seen); Bilirubin Negative (Negative); Blood, Urine Negative (Negative); Clarity Clear (Clear); Glucose, Urine (Dipstick) Normal (Negative); Ketone, Urine 80 mg/dL (Negative); Leukocyte Negative Leu/uL (Negative); Nitrite Negative (Negative); Protein, Urine (Dipstick) 30 mg/dL (Neg-Trace); RBC/HPF 0-3 HPF (0-3); Squamous Epithelial 0-3 HPF (0-3); Urobilinogen 3 mg/dL (Less than 2); WBC/HPF 0-3 HPF (0-3); pH, Urine 6.5 (5.0-9.0)
[2019-11-20] MEDS ORDERED: Haloperidol Lactate 5 MG/ML VIAL ONE (13:32)
[2019-11-20 14:12] LABS: Amphetamine Not Detected (NotDetected); Barbiturates Screen Not Detected (NotDetected); Benzodiazepine Screen Not Detected (NotDetected); Cocaine Metabolite Screen Not Detected (NotDetected); Medtox Control Line Valid? VALID (VALID); Medtox Reader # READER 1; Methadone Not Detected (NotDetected); Methamphetamine Not Detected (NotDetected); Opiate Screen Not Detected (NotDetected); Oxycodone Screen Not Detected (NotDetected); Phencyclidine (PCP) Not Detected (NotDetected); THC/Cannabinoid Screen Not Detected (NotDetected); Tricyclic Screen Not Detected (NotDetected)
[2019-11-20] MEDS ORDERED: Midazolam HCl 2 mg/2 ml Vial ONE (14:21)
[2019-11-20 14:28] LABS: Acetaminophen Less than 6.0 mcg/mL (10.0-30.0); Alcohol Less than 10 mg/dL (Less than 10); Salicylate Less than 8.0 mg/dL (15.0-30.0)
--- NOTE | 2019-11-23 11:04 | EKG ---
Test Reason : Blood Pressure : / mmHG Vent. Rate : 105 BPM Atrial Rate : 105 BPM P-R Int : 128 ms QRS Dur : 080 ms QT Int : 336 ms P-R-T Axes : 067 043 054 degrees QTc Int : 444 ms Sinus tachycardia Otherwise normal ECG Confirmed by ROSE MARIE BECKFORD DO ([id number]), editorial assistant GERARDO LINDSEY ([id number]) on 11/23/2019 11:03:31 AM Referred By: Confirmed By:ROSE MARIE BECKFORD DO
== END 2019-11-20 18:46 ==
LOC: EEVIPCON 11:26 → ERS 11:26
DX: F20.0 Paranoid schizophrenia (principal); Y90.0 Blood alcohol level of less than 20 mg/100 ml
CPT/HCPCS: 36415; 80053; 80306; 80307; 81003; 81015; 82550; 83880; 84443; 84484; 85025; 93005; 96372; J1630; J2250

== ENCOUNTER 2020-07-24 05:05 | Emergency (ER) | payer SELFPAY ==
[2020-07-24 06:05] LABS: Mean Corpuscular HGB CONC 33.9 g/dL (32.0-36.0); Mean Corpuscular Volume 94.3 fL (78.0-98.0); RBC Distribution Width 11.4 % (11.5-14.5); Red Blood Cell (RBC) Count 4.39 mill/uL (4.70-6.10); White Blood Cell (WBC) Count 5.6 thou/uL (4.8-10.8)
[2020-07-24 06:13] LABS: ALT (SGPT) 146 U/L (8-55); AST (SGOT) 197 U/L (5-34); Albumin 4.6 g/dL (3.5-5.0); Alkaline Phosphatase 66 U/L (40-110); Anion Gap 11 mmol/L (10-20); BUN (Urea Nitrogen) 11 mg/dL (8.9-20.6); Bilirubin, Total 1.3 mg/dL (0.2-1.2); CK (CPK) 325 U/L (30-200); Calc. Creatinine Clearance 0 mL/min (70-130); Calcium 9.6 mg/dL (7.8-10.44); Carbon Dioxide 31 mmol/L (22-29); Chloride 98 mmol/L (98-107); Globulin 3.3 g/dL (2.4-3.5); Glucose 95 mg/dL (70-105); Potassium 3.4 mmol/L (3.5-5.1); Protein, Total 7.9 g/dL (6.0-8.3); Sodium 137 mmol/L (136-145)
[2020-07-24] MEDS ORDERED: Lorazepam 2 MG/ML VIAL ONE (06:14)
[2020-07-24] MEDS ORDERED: Diazepam 5 MG TAB ONE (06:14)
[2020-07-24 06:29] LABS: #Lymphocytes 1.1 thou/uL (1.20-3.40); #Monocytes 0.6 thou/uL (0.11-0.59); #Neutrophils 3.8 thou/uL (1.40-6.50); %Basophils 0.5 % (0.0-1.0); %Eosinophils 0.7 % (0.0-10.0); %Lymphocytes 19.8 % (21.0-51.0); %Monocytes 10.4 % (0.0-10.0); %Neutrophils 68.6 % (42.0-75.0); Mean Platelet Volume 8.1 fL (7.4-10.4); Platelet Count 94 thou/uL (130-400); Platelet Morphology Comment Appears Decreased
== END 2020-07-24 07:34 | disposition home or self-care (01) ==
LOC: ERS 05:05
DX: E86.0 Dehydration (principal); F10.239 Alcohol dependence with withdrawal, unspecified
CPT/HCPCS: 80053; 82550; 85025; 96374; J2060